=== PATIENT | male | born 1965 | race Caucasian/White ===

== ENCOUNTER 2021-08-25 09:01 | Outpatient (CLI) | payer OTHER, SELFPAY ==
--- NOTE | ~2021-08-25 | CT_ITS ---
EXAMINATION: CT brain & sinus wo con INDICATION: Headache COMPARISON: None TECHNIQUE: Standard unenhanced head CT. The dose-length product (DLP) was 756.67 mGy-cm. The mA was a djusted according to patient size. Iterative reconstruction technique was employed. FINDINGS: Head CT: There is no intracranial hemorrhage, acute infarction, or abnormal mass lesion. The ventricl es are normal. There is no abnormal mass effect or midline shift. The brantley-white matter differentiati on is normal. The basal cisterns are patent. The orbits are normal. Sinus CT: There is normal development and pneumatization of the paranasal sinuses. There is mild muco liliana thickening of the ethmoidal air cells and the right maxillary sinus. There is a polyp or mucous r etention cyst of the left maxillary sinus. There is a small polyp or mucous retention cyst of the lef t sphenoid sinus. The bilateral ostiomeatal complexes are patent. Visualized soft tissues are unremar kable. IMPRESSION: 1. No acute intracranial abnormality. 2. Sinus disease as detailed above. Reviewed, dictated and finalized at location A.
== END 2021-08-25 09:02 | disposition home or self-care (01) ==
PROVIDERS: PCP Family Medicine; Visit Provider Family Medicine
DX: R51.9 Headache, unspecified (principal)
CPT/HCPCS: 70450; 70486

== ENCOUNTER 2022-04-20 08:52 | Outpatient (CLI) | payer OTHER, SELFPAY | END 2022-04-20 08:53 | disposition home or self-care (01) | LOC: ANHAUDIO 08:53 | PROVIDERS: PCP Family Medicine; Visit Provider Otolaryngology | DX: H93.13 Tinnitus, bilateral (principal); H90.41 Sensorineural hearing loss, unilateral, right ear, with unrestricted hearing on the contralateral side; H90.72 Mixed conductive and sensorineural hearing loss, unilateral, left ear, with unrestricted hearing on the contralateral side | CPT/HCPCS: 92557; 92567 ==

== ENCOUNTER 2023-12-26 01:46 | Day surgery (SDC) | payer OTHER, SELFPAY ==
[2023-12-19 11:21] VITALS: BMI 47.3
--- NOTE | 2023-12-19 16:36 | PC.NURSE ---
Spoke with _patient regarding medication ELIQUIS. Pt. verbalizes understanding that the last dose of ELIQUIS is to be taken on 12/23/2023 AND HE WILL CALL DR. David Bauer offices for instructions on bridging his Eliquis to Lovenox and the Endoscopist will instruct them when to restart after the procedure. I called Celeste Rai with Dr. Mishra's office and made them aware of the Eliquis and him bridging to Lovenox with last dose of Lovenox at 8pm on 12/25/2023.
[2023-12-26 08:53] VITALS: BP 145/84; PULSE 82; RESP 20; TEMP 36.2; O2SAT 97
[2023-12-26 08:58] LABS: Glucose Point of Care 126 mg/dl (65-105)
[2023-12-26] MEDS: LACTATED RINGERS 1,000 ML 150 ML IV CONT (09:07)
--- NOTE | 2023-12-26 09:45 | WPDANESEPPF ---
Anes - Initial Pre Proc Eval Procedure: Operation Date: 12/26/23 10:00 Proposed Procedures p Screening Colonoscopy - Jassi Mishra DO Date/Time: 12/26/23 09:45 Surgeon: Jassi Mishra DO Pre Op Diagnosis: Screening for malignant neoplasm of colon Patient Data Age: 58 Gender: M Height: 1.78 m Weight: 145.9 kg Last Vital Signs Temp 36.2 C L 12/26/23 08:53 Pulse 82 12/26/23 08:53 Resp 20 12/26/23 08:53 BP 145/84 H 12/26/23 08:53 Pulse Ox 97 12/26/23 08:53 O2 Del Method Room Air 12/26/23 08:53 Allergies Allergy/AdvReac Type Severity Reaction Status Date / Time No Known Allergies Allergy Unknown Verified 12/26/23 08:49 Home Medications Medication Instructions Recorded Confirmed Type irbesartan 300 mg tablet 300 mg PO DAILY 06/13/22 12/26/23 History omeprazole 20 mg capsule,delayed 20 mg PO DAILY #90 caps 04/23/23 12/26/23 Rx release atorvastatin 40 mg tablet 40 mg PO QHS #90 tabs 09/23/23 12/26/23 Rx apixaban 5 mg tablet (Eliquis) 5 mg PO BID 11/28/23 12/26/23 History Daily Probiotic 1 dose PO DAILY 12/19/23 12/26/23 History fluticasone propionate 50 1 spray intranasal BID PRN 12/19/23 12/26/23 History mcg/actuation nasal ALLERGIES spray,suspension (Flonase Allergy Relief) mecobalamin (vitamin B12) 5,000 5,000 mcg PO DAILY 12/19/23 12/26/23 History mcg disintegrating tablet multivitamin with minerals-folic 1 tablet PO DAILY 12/19/23 12/26/23 History acid 0.4 mg tablet Laboratory Tests 12/26/23 08:46 POC Capillary Glucose 126 H mg/dl (65-105) Patient hx anesthesia problems: none Family hx anesthesia problems: none Results Review: All pre-operative results and documents have been reviewed as part of the pre-operative evaluation. [facility] Past Medical History Medical History Adult BMI 45.0-49.9 kg/sq m Chronic nasal congestion Controlled diabetes mellitus without complication, without long-term current use of insulin (11/19/23) glucose 82 and hemoglobin A1c 6.2 on 03/24/2021. Glucose 100 with hemoglobin A1c 5.9 on 09/15/2021. Glucose 90 on 06/27/2022. Fasting glucose 105 with hemoglobin A1c 6.6 and GFR 76 on 11/19/2023. COVID-19 (12/09/21) tested positive 12/10/2021. Diverticulitis Elevated fasting glucose glucose 82 and hemoglobin A1c 6.2 on 03/24/2021. Glucose 100 with hemoglobin A1c 5.9 on 09/15/2021. Glucose 90 on 06/27/2022. Fasting glucose 105 with hemoglobin A1c 6.6 and GFR 76 on 11/19/2023. Elevated LFTs AST 39 and ALT 65 on 03/24/2021 with history of fatty liver. AST 37 and ALT 61 on 09/15/2021. AST 34, ALT 47 on 11/19/2023. Encounter for prostate cancer screening PSA 1.7 on 03/24/2021 Facial paresthesia (~06/18/22) ER 06/18/[address] of the brain, CT angiogram of the neck and head, MRI of the brain, MRA of the brain unremarkable. Hematuria, microscopic Hypersomnia Morbid obesity with BMI of 45.0-49.9, adult Nail fungal infection right foot all nails New onset headache CT of the brain 08/25/2021 unremarkable. Paroxysmal atrial fibrillation (~06/2023) Polycythemia hematocrit 50.4 on 09/15/2021. Hemoglobin 16.2 with hematocrit 47.7 on 06/27/2022. Hemoglobin 14.9 on 11/19/2023. 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
--- NOTE | 2023-12-26 10:00 | PM.IMHP ---
H&P: HPI History of Present Illness Date/Time: 12/26/23 10:00 Chief Complaint: screening for colorectal cancer Narrative: this is a 58-year-old man who presents for colonoscopy. His last colonoscopy was 10 years ago. He denies any hematochezia or melena. He denies any family history of colon cancer. He does have a history of sigmoid colon resection for diverticulitis about 15 years ago. He has not had diverticulitis since. Review of Systems Review of Systems: All systems reviewed & are unremarkable except as noted in HPI and below Constitutional: Constitutional: Denies chills, Denies fever(s), Denies headache(s) and Denies weight loss Eyes: Eyes: Denies change in vision ENT: Denies dizziness, Denies headache(s), Denies neck mass and Denies throat swelling Cardiovascular: Cardiovascular: Denies chest pain, Denies lightheadedness and Denies dyspnea Respiratory: Respiratory: Denies cough, Denies dyspnea and Denies wheezing Gastrointestinal: Gastrointestinal: Denies abdominal pain, Denies change in bowel habits, Denies nausea and Denies vomiting Genitourinary: Genitourinary: Denies hematuria and Denies dysuria Musculoskeletal: Musculoskeletal: Reports as per HPI Integumentary/Breasts: Skin/Breast: Reports as per HPI Neurologic: Denies dizziness and Denies headache(s) Allergic/Immunologic: Allergic/Immunologic: Denies throat swelling and Denies wheezing [facility] Past Medical History Medical History Adult BMI 45.0-49.9 kg/sq m Chronic nasal congestion Controlled diabetes mellitus without complication, without long-term current use of insulin (11/19/23) glucose 82 and hemoglobin A1c 6.2 on 03/24/2021. Glucose 100 with hemoglobin A1c 5.9 on 09/15/2021. Glucose 90 on 06/27/2022. Fasting glucose 105 with hemoglobin A1c 6.6 and GFR 76 on 11/19/2023. COVID-19 (12/09/21) tested positive 12/10/2021. Diverticulitis Elevated fasting glucose glucose 82 and hemoglobin A1c 6.2 on 03/24/2021. Glucose 100 with hemoglobin A1c 5.9 on 09/15/2021. Glucose 90 on 06/27/2022. Fasting glucose 105 with hemoglobin A1c 6.6 and GFR 76 on 11/19/2023. Elevated LFTs AST 39 and ALT 65 on 03/24/2021 with history of fatty liver. AST 37 and ALT 61 on 09/15/2021. AST 34, ALT 47 on 11/19/2023. Encounter for prostate cancer screening PSA 1.7 on 03/24/2021 Facial paresthesia (~06/18/22) ER 06/18/[address] of the brain, CT angiogram of the neck and head, MRI of the brain, MRA of the brain unremarkable. Hematuria, microscopic Hypersomnia Morbid obesity with BMI of 45.0-49.9, adult Nail fungal infection right foot all nails New onset headache CT of the brain 08/25/2021 unremarkable. Paroxysmal atrial fibrillation (~06/2023) Polycythemia hematocrit 50.4 on 09/15/2021. Hemoglobin 16.2 with hematocrit 47.7 on 06/27/2022. Hemoglobin 14.9 on 11/19/2023. 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 Tinnitus of both ears Family History Family History Mother Patient's mother is in good health Father Patient's father is in good health Other Hypertension Social History Social History Smoking status: Never smoker Alcohol intake: current Substance use: never Substance use type: does not use Lack of Transportation: No Lack of Food: Never True Current Housing: I Have Housing Concerned About Future Housing: No Difficulty Paying Gas/Electric Bills: No Difficulty Paying for Meds: No Currently Unemployed: No Education: Bachelor's Degree Difficulty w/ Childcare or Family Care: No Living arrangements: with family Spiritual care concerns: No Meds Home Medications and Allergies Home Medications Medication Instructions Recorded Confirme
[2023-12-26 10:23] VITALS: BP 143/82; PULSE 92; RESP 16; O2SAT 94
[2023-12-26 10:33] VITALS: BP 146/77; PULSE 69; RESP 20; O2SAT 96
[2023-12-26 10:43] VITALS: BP 144/87; PULSE 67; RESP 20; O2SAT 98
== END 2023-12-26 10:50 | disposition home or self-care (01) ==
PROVIDERS: PCP Family Medicine; Visit Provider Surgery
PROC: 0DJD8ZZ Inspection of Lower Intestinal Tract, Via Natural or Artificial Opening Endoscopic (ICD-10-PCS; CPT 45378; principal; 2023-12-26 10:00)
DX: Z12.11 Encounter for screening for malignant neoplasm of colon (principal); E11.9 Type 2 diabetes mellitus without complications; G47.10 Hypersomnia, unspecified; I48.0 Paroxysmal atrial fibrillation; D75.1 Secondary polycythemia; R09.81 Nasal congestion; E66.01 Morbid (severe) obesity due to excess calories; Z68.42 Body mass index [BMI] 45.0-49.9, adult; Z79.01 Long term (current) use of anticoagulants
CPT/HCPCS: 45378; 82948; J2704; J7120

== ENCOUNTER → 2024-12-23 16:36 | Outpatient (CLI) | payer OTHER, SELFPAY ==
--- NOTE | ~2024-12-23 | XR_ITS ---
EXAMINATION: XR foot RT min 3V, 12/23/2024 16:40 CDT HISTORY: M79.671 - Pain in right foot COMPARISON: No comparisons available. Findings: No acute fracture or malalignment. No significant degenerative changes. Soft tissues unremarkable. Impression: No acute fracture or malalignment. Reviewed, dictated and finalized at location A. Impression: No acute fracture or malalignment.
== END ==
LOC: EXPCRAD 16:38
PROVIDERS: PCP Family Medicine; Visit Provider Family Medicine
DX: M79.671 Pain in right foot (principal)
CPT/HCPCS: 73630